=== PATIENT | female | born 1970 | race Caucasian/White ===

== ENCOUNTER 2022-05-08 09:19 | Emergency (ER) | payer BC, MEDICAID | END 2022-05-08 10:22 | disposition home or self-care (01) | LOC: JP.ED 09:19 | DX: F41.9 Anxiety disorder, unspecified (principal); R03.0 Elevated blood-pressure reading, without diagnosis of hypertension; Z79.899 Other long term (current) drug therapy | CPT/HCPCS: 99283 ==